=== PATIENT | female | born 1975 | race Caucasian/White ===

== ENCOUNTER 2022-10-07 12:23 | Emergency (ER) | payer BC ==
[2022-10-07] MEDS ORDERED: ASPIRIN 81 MG CHEWABLE TABLET ONE (12:54)
[2022-10-07] MEDS ORDERED: FAMOTIDINE 20 MG/2 ML VIAL IV ONE (12:55)
[2022-10-07] MEDS ORDERED: NA CHLORIDE 0.9% 1,000 ML ONE (12:55)
[2022-10-07 13:09] LABS: Absolute Lymphocytes (CBC) 1.9 K/uL (0.7-4.9); Hematocrit 41.1 % (36.0-45.0); Lymphocytes % 19.3 % (15.3-44.8); MCV 91.6 fL (80-100); MPV 7.9 fL (7.6-11.3); RBC Red Blood Cell Count 4.49 M/uL (3.86-4.86)
[2022-10-07 13:15] LABS: Protime INR 0.97
--- NOTE | 2022-10-07 13:17 | RAD REPORT ---
EXAM DESCRIPTION: Maurice Single View10/07/2022 12:47 pm CLINICAL HISTORY: CHEST PAIN COMPARISON: No comparisons TECHNIQUE: Portable AP view of the chest. FINDINGS: The lungs are clear. No pneumothorax or effusion. The cardiomediastinal contours are unre markable. IMPRESSION: No acute cardiopulmonary process.
[2022-10-07 13:31] LABS: ALT/SGPT 26 U/L (13-56); AST/SGOT 16 U/L (15-37); Albumin 3.6 g/dL (3.4-5.0); Alkaline Phosphatase 36 U/L (45-117); BUN Blood Urea Nitrogen 14 mg/dL (7-18); Bicarbonate 24 mEq/L (21-32); Bilirubin Direct < 0.1 mg/dL (0-0.2); Bilirubin Indirect, Calculated ND mg/dL (0.2-0.8); Bilirubin Total 0.3 mg/dL (0.2-1.0); Glomerular Filtration Rate 110 ml/min (=/>90); Glucose Level 107 mg/dL (74-106); Lipase 31 U/L (13-75); Magnesium 2.1 mg/dL (1.6-2.4); NT PRO-BNP 270 pg/mL (<125); Potassium 3.3 mEq/L (3.5-5.1); Protein, Total 7.8 g/dL (6.4-8.2); Sodium Level 138 mEq/L (136-145); Troponin High Sensitivity 4.1 pg/mL (<58.9)
[2022-10-07 13:50] LABS: Specific Gravity < 1.005 (1.005-1.030); Urine Bilirubin NEGATIVE (Negative); Urine Blood Negative (Negative); Urine Clarity Clear (Clear); Urine Color Colorless (Yellow); Urine Glucose NEGATIVE (Negative); Urine Protein NEGATIVE (Negative); Urine Urobilinogen Normal (Normal)
[2022-10-07 14:01] LABS: Barbiturates NEGATIVE (NEGATIVE); Benzodiazepines NEGATIVE (NEGATIVE); Cocaine NEGATIVE (NEGATIVE); METHAMPHETAM NEGATIVE (NEGATIVE); Methadone NEGATIVE (NEGATIVE); Opiates NEGATIVE (NEGATIVE); Phencyclidine NEGATIVE (NEGATIVE); THC Cannibis NEGATIVE (NEGATIVE)
--- NOTE | 2022-10-07 14:36 | RAD REPORT ---
EXAM DESCRIPTION: CT - Chest For Pe Angio - 10/07/2022 2:09 pm CLINICAL HISTORY: CHEST PAIN COMPARISON: Chest Single View dated 10/07/2022 TECHNIQUE: Thin axial CT images of the chest were obtained following administration of 95 mL Isovue 370 IV contrast. Multiplanar reconstructions, and maximum intensity projection reconstructions were g enerated and reviewed. Exam utilizes a protocol for optimal evaluation of pulmonary arterial tree. All CT scans are performed using dose optimization technique as appropriate and may include automated exposure control or mA/KV adjustment according to patient size. FINDINGS: Pulmonary arteries are normal. No emboli or other suspicious finding. No acute or signific ant aorta findings. No mass or infiltrate in the lung parenchyma. No pleural thickening or pleural effusion. No pneumotho rax. No abnormal mediastinal or hilar masses or lymphadenopathy seen. No chest wall mass or abnormal axill iary lymphadenopathy. Status post cholecystectomy. IMPRESSION: No evidence of acute central pulmonary emboli. No other acute findings in the chest.
[2022-10-07] MEDS ORDERED: POTASSIUM 25 MEQ EFFERV TAB ONE (14:45)
[2022-10-07] MEDS ORDERED: LEVALBUTEROL 1.25 MG/3 ML NEB ONE (14:45)
--- NOTE | 2022-10-07 15:46 | EDPHYS ---
Physician Documentation [facility] Name: Kaitlyn Carvalho Age: 47 yrs Sex: Female : 1975 Arrival Date: 10/07/2022 Time: 12:23 Bed 4 Private MD: RICARDO Physician Leandro Hill HPI: 10/07 13:51 This 47 yrs old WHITE Female presents to ER via Ambulatory with complaints of Chest daysi Pain. 13:51 The patient or guardian reports chest pain that is located primarily in the anterior daysi chest wall, bilaterally. Onset: last night. The pain does not radiate. Associated signs and symptoms: Pertinent positives: None. Pertinent negatives: None. The chest pain is described as sharp. Duration: The patient or guardian reports multiple episodes, with no pattern. Modifying factors: The symptoms are alleviated by nothing. the symptoms are aggravated by nothing. Severity of pain: At its worst the pain was mild in the emergency department the pain has resolved and did so earlier today. The patient has experienced similar episodes in the past, a few times. Historical: - Allergies: 12:41 No Known Allergies; hb - Home Meds: 12:41 Omeprazole Oral [Active]; Claritin Oral [Active]; hb - PMHx: 12:41 None; hb - PSHx: 12:41 Cholecystectomy; hb - Immunization history:: Adult Immunizations up to date. - Social history:: Smoking status: Patient denies any tobacco usage or history of. - Family history:: not pertinent. ROS: 13:51 Constitutional: Negative for fever, chills, and weight loss, Eyes: Negative for injury, daysi pain, redness, and discharge, ENT: Negative for injury, pain, and discharge, Neck: Negative for injury, pain, and swelling, Abdomen/GI: Negative for abdominal pain, nausea, vomiting, diarrhea, and constipation, Back: Negative for injury and pain, : Negative for injury, bleeding, discharge, and swelling, MS/Extremity: Negative for injury and deformity, Skin: Negative for injury, rash, and discoloration, Neuro: Negative for headache, weakness, numbness, tingling, and seizure, Psych: Negative for depression, anxiety, suicide ideation, homicidal ideation, and hallucinations, Allergy/Immunology: Negative for hives, rash, and allergies, Endocrine: Negative for neck swelling, polydipsia, polyuria, polyphagia, and marked weight changes, Hematologic/Lymphatic: Negative for swollen nodes, abnormal bleeding, and unusual bruising. 13:51 Cardiovascular: Positive for chest pain, of the chest, Negative for edema, orthopnea, palpitations, paroxysmal nocturnal dyspnea, acute changes. 13:51 : Negative for injury or acute deformity. Exam: 13:54 Constitutional: This is a well developed, well nourished patient who is awake, alert, daysi and in no acute distress. Head/Face: Normocephalic, atraumatic. Eyes: Pupils equal round and reactive to light, extra-ocular motions intact. Lids and lashes normal. Conjunctiva and sclera are non-icteric and not injected. Cornea within normal limits. Periorbital areas with no swelling, redness, or edema. ENT: Nares patent. No nasal discharge, no septal abnormalities noted. Tympanic membranes are normal and external auditory canals are clear. Oropharynx with no redness, swelling, or masses, exudates, or evidence of obstruction, uvula midline. Mucous membranes moist. Neck: Trachea midline, no thyromegaly or masses palpated, and no cervical lymphadenopathy. Supple, full range of motion without nuchal rigidity, or vertebral point tenderness. No Meningismus. Chest/axilla: Normal chest wall appearance and motion. Nontender with no deformity. No lesions are appreciated. Cardiovascular: Regular rate and rhythm with a normal S1 and S2. No gallops, murmurs, or rubs. Normal PMI, no JVD. No pulse deficits. Respiratory: Lungs have equal breath sounds bilaterally, clear to auscultation and percussion. No rales, rhonchi or wheezes noted. No increased work of breathing, no retractions or nasal flaring. Abdomen/GI: Soft, non-tender, with normal bowel sounds. No distension or tympany. No guarding or rebound. No evidence of tenderness throughout. Back: No spinal tenderness. No costovertebral tenderness. Full range of motion. Skin: Warm, dry with normal turgor. Normal color with no rashes, no lesions, and no evidence of cellulitis. MS/ Extremity: Pulses equal, no cyanosis. Neurovascular intact. Full, normal range of motion. Neuro: Awake and alert, GCS 15, oriented to person, place, time, and situation. Cranial nerves II-XII grossly intact. Motor strength 5/5 in all extremities. Sensory grossly intact. Cerebellar exam normal. Normal gait. Psych: Awake, alert, with orientation to person, place and time. Behavior, mood, and affect are within normal limits. 13:54 ECG was reviewed by the Attending Physician. NSR, NO ST CHANGES 13:54 Musculoskeletal/extremity: DVT Exam: No signs of deep vein thrombosis. no pain, no swelling, no tenderness, negative Homans' sign noted on exam, no appreciated bluish discoloration, no erythema, no increased warmth. Vital Signs: 12:40 BP 134 / 98; Pulse 66; Resp 16; Temp 98.4; Pulse Ox 100% on R/A; Weight 64.41 kg; hb Height 5 ft. 3 in. ; Pain 0/10; 13:27 BP 113 / 76; Pulse 56; Resp 18; Pulse Ox 99% on R/A; ph 14:11 BP 106 / 74; Pulse 55; Resp 18; Pulse Ox 98% on R/A; ph 14:43 BP 105 / 73; Pulse 64; Resp 16; Pulse Ox 100% on R/A; vg1 15:42 BP 96 / 62; Pulse 67; Resp 16; Pulse Ox 100% on R/A; vg1 12:40 Body Mass Index 25.15 (64.41 kg, 160.02 cm) hb 12:40 Pain Scale: Adult hb MDM: 12:34 Patient medically screened. daysi 13:55 Differential diagnosis: abnormal EKG, acute myocardial infarction, acute pericarditis, daysi anxiety, chest wall pain, Cholelithiasis costochondritis, esophagitis, gastritis, hiatal hernia, pancreatitis, peptic ulcer disease, pericarditis, pleurisy, pneumonia, pneumothorax, pulmonary embolus, stable angina, thoracic aortic disection, unstable angina. HEART Score: History: Slightly Suspicious (0), ECG: Normal (0), Age: < or = 45 years (0), Risk Factors: No Risk Factors Known (0), Troponin: < or = 1 x Normal Limit (0). The patient was given aspirin in the Emergency Department. TITA Risk Score: TOTAL SCORE = 0. Data reviewed: vital signs, nurses notes, lab test result(s), EKG, radiologic studies, CT scan, plain films. Consideration of Admission/Observation Escalation of care including admission/observation considered. I considered the following discharge prescriptions or medication management in the emergency department Medications were administered in the Emergency Department. See MAR. Independent interpretation of the following test(s) in the Emergency Department EKG: See my EKG interpretation above. Test considered but Not performed: Ultrasound NO ECHO, NO ABD USG. Care significantly affected by the following chronic conditions: GERD. 10/07 12:36 Order name: Basic Metabolic Panel; Complete Time: 13:40 [facility] 10/07 12:36 Order name: CBC with Diff; Complete Time: 13:40 10/07 12:36 Order name: LFT's; Complete Time: 13:40 10/07 12:36 Order name: Magnesium; Complete Time: 13:40 10/07 12:36 Order name: NT PRO-BNP; Complete Time: 13:40 10/07 12:36 Order name: PT-INR; Complete Time: 13:40 10/07 12:36 Order name: Troponin HS; Complete Time: 13:40 10/07 12:36 Order name: Urinalysis w/ reflexes; Complete Time: 14:08 10/07 12:36 Order name: UDS; Complete Time: 14:08 10/07 12:36 Order name: Lipase; Complete Time: 13:40 10/07 14:39 Order name: Troponin High Sensitivity: 3pm; Complete Time: 15:44 10/07 12:36 Order name: XRAY Chest (1 view); Complete Time: 13:40 10/07 13:41 Order name: CT Chest For PE Angio; Complete Time: 14:37 10/07 12:36 Order name: EKG; Complete Time: 12:36 [facility] 10/07 12:36 Order name: Cardiac monitoring; Complete Time: 12:43 daysi 10/07 12:36 Order name: EKG - Nurse/Tech; Complete Time: 12:43 10/07 12:36 Order name: IV Saline Lock; Complete Time: 12:43 10/07 12:36 Order name: Labs collected and sent; Complete Time: 12:55 10/07 12:36 Order name: O2 Per Protocol; Complete Time: 12:43 10/07 12:36 Order name: O2 Sat Monitoring; Complete Time: 12:43 [facility] EC:54 Rate is 69 beats/min. Rhythm is regular. QRS [place] is Normal. CT interval is normal. QRS daysi interval is normal. QT interval is normal. No Q waves. T waves are Normal. No ST changes noted. Clinical impression: NSR w/ Non-specific ST/T Changes and No evidence of ischemia. Interpreted by me. Reviewed by me. Administered Medications: 12:54 Drug: Aspirin PO Chewable Tablet 324 mg Route: PO; ph 14:11 Follow up: Response: No adverse reaction ph 12:54 Drug: NS 0.9% IV 1000 ml Route: IV; Rate: 125 ml/hr; Site: right antecubital; ph 16:07 Follow up: IV Status: Completed infusion; IV Intake: 1000ml vg1 12:54 Drug: Famotidine IVP 20 mg Route: IVP; Site: right antecubital; ph 14:13 Follow up: Response: No adverse reaction ph 14:40 Drug: Potassium PO Effervescent Tablet 25 mEq Route: PO; vg1 16:06 Follow up: Response: No adverse reaction vg1 14:42 Drug: Levalbuterol Inhalation 2.5 mg Route: Inhalation; vg1 16:06 Follow up: Response: No adverse reaction vg1 Disposition Summary: 10/07/22 15:46 Discharge Ordered Location: Home daysi Problem: new daysi Symptoms: have improved daysi Condition: Stable daysi Diagnosis - Acute bronchospasm daysi - Chest pain, unspecified daysi - Gastro-esophageal reflux disease with esophagitis daysi - Hypokalemia daysi Followup: daysi - With: Private Physician - When: 2 - 3 days - Reason: Recheck today's complaints, Continuance of care, Re-evaluation by your physician Followup: daysi - With: - When: 2 - 3 days - Reason: Recheck today's complaints, Re-evaluation by your physician Discharge Instructions: - Discharge Summary Sheet daysi - Bronchospasm, Adult daysi - Nonspecific Chest Pain, Adult daysi - Food Choices for Gastroesophageal Reflux Disease, Adult daysi - Potassium Content of Foods daysi - Esophagitis daysi - Gastroesophageal Reflux Disease, Adult daysi - Nonspecific Chest Pain, Adult, [id number] daysi - Gastroesophageal Reflux Disease, Adult, [id number] daysi - Aspirin and Your Heart daysi - Hypokalemia daysi Forms: - Medication Reconciliation Form daysi - Thank You Letter daysi - Antibiotic Education daysi - Prescription Opioid Use daysi - Patient Portal Instructions daysi Prescriptions: - albuterol sulfate 90 mcg/actuation Inhalation HFA Aerosol Inhaler - inhale 2 inhalation by INHALATION route every 4 to 6 hours as needed for daysi shortness of breath or wheezing; 1 unit; Refills: 0, Product Selection Permitted - Protonix 40 mg Oral Tablet - take 1 tablet by ORAL route once daily; 30 tablet; Refills: 0, Product daysi Selection Permitted Signatures: Dispatcher [employer] Leandro Lee MD MD cha Hall, Patricia, RN RN ph Baxter, Heather, RN RN Charmaine Tavarez RN RN vg1
--- NOTE | 2022-10-07 15:46 | ER ---
Nurse's Notes [facility] Name: Kaitlyn Carvalho Age: 47 yrs Sex: Female : 1975 Arrival Date: 10/07/2022 Time: 12:23 Bed 4 Private MD: Diagnosis: Acute bronchospasm;Chest pain, unspecified;Gastro-esophageal reflux disease with esophagitis;Hypokalemia Presentation: 10/07 12:40 Chief complaint: Intermittent sharp left sided chest pain that started last night. hb Coronavirus screen: At this time, the client does not indicate any symptoms associated with coronavirus-19. Ebola Screen: No symptoms or risks identified at this time. Initial Sepsis Screen: Does the patient meet any 2 criteria? No. Patient's initial sepsis screen is negative. Does the patient have a suspected source of infection? No. Patient's initial sepsis screen is negative. Risk Assessment: Do you want to hurt yourself or someone else? Patient reports no desire to harm self or others. Onset of symptoms was October 06, 2022. 12:40 Method Of Arrival: Ambulatory hb 12:40 Acuity: RIAZ 3 hb Historical: - Allergies: 12:41 No Known Allergies; hb - Home Meds: 12:41 Omeprazole Oral [Active]; Claritin Oral [Active]; hb - PMHx: 12:41 None; hb - PSHx: 12:41 Cholecystectomy; hb - Immunization history:: Adult Immunizations up to date. - Social history:: Smoking status: Patient denies any tobacco usage or history of. - Family history:: not pertinent. Screenin:26 [facility] ED Fall Risk Assessment (Adult) History of falling in the last 3 months, ph including since admission No falls in past 3 months (0 pts) Confusion or Disorientation No (0 pts) Intoxicated or Sedated No (0 pts) Impaired Gait No (0 pts) Mobility Assist Device Used No (0 pt) Altered Elimination No (0 pt) Score/Fall Risk Level 0 - 2 = Low Risk Oriented to surroundings, Maintained a safe environment, Hourly rounding (assess needs \T\ fall precautionary measures) done. Abuse screen: Denies threats or abuse. Denies injuries from another. Nutritional screening: No deficits noted. Tuberculosis screening: No symptoms or risk factors identified. Assessment: 13:00 General: Appears in no apparent distress. comfortable, well groomed, Behavior is calm, ph cooperative, appropriate for age. Pain: Complains of pain in anterior aspect of left upper chest Pain does not radiate. Pain began yesterday Is intermittent. Neuro: Level of Consciousness is awake, alert, obeys commands, Oriented to person, place, time, situation. Cardiovascular: Reports chest pain, Denies lightheadedness, nausea, vomiting. Respiratory: Airway is patent Respiratory effort is even, unlabored. Derm: Skin is pink, warm \T\ dry. 14:11 Reassessment: Patient appears in no apparent distress at this time. Patient and/or ph family updated on plan of care and expected duration. Pain level reassessed. Patient is alert, oriented x 3, equal unlabored respirations, skin warm/dry/pink. 14:43 General: Appears in no apparent distress. comfortable, Behavior is calm, cooperative. vg1 Pain: Denies pain. Cardiovascular: Patient's skin is warm and dry. 15:42 Reassessment: Patient appears in no apparent distress at this time. No changes from vg1 previously documented assessment. Patient and/or family updated on plan of care and expected duration. Pain level reassessed. Patient is alert, oriented x 3, equal unlabored respirations, skin warm/dry/pink. 16:06 Reassessment: Patient appears in no apparent distress at this time. Patient and/or vg1 family updated on plan of care and expected duration. Pain level reassessed. Patient is alert, oriented x 3, equal unlabored respirations, skin warm/dry/pink. Patient states feeling better. Vital Signs: 12:40 BP 134 / 98; Pulse 66; Resp 16; Temp 98.4; Pulse Ox 100% on R/A; Weight 64.41 kg; hb Height 5 ft. 3 in. ; Pain 0/10; 13:27 BP 113 / 76; Pulse 56; Resp 18; Pulse Ox 99% on R/A; ph 14:11 BP 106 / 74; Pulse 55; Resp 18; Pulse Ox 98% on R/A; ph 14:43 BP 105 / 73; Pulse 64; Resp 16; Pulse Ox 100% on R/A; vg1 15:42 BP 96 / 62; Pulse 67; Resp 16; Pulse Ox 100% on R/A; vg1 12:40 Body Mass Index 25.15 (64.41 kg, 160.02 cm) hb 12:40 Pain Scale: Adult hb Vitals: 13:27 Cardiac Rhythm Assessment Sinus rhythm. ph ED Course: 12:28 Patient arrived in ED. ts1 12:30 Siomara Lowe, RN is Primary Nurse. ph 12:34 Leandro Hill MD is Attending Physician. daysi 12:36 EKG completed in triage. Results shown to MD. hb 12:41 Triage completed. hb 12:42 Arm band placed on right wrist. hb 12:45 Initial lab(s) drawn, by me, sent to lab. EKG done, by ED staff, reviewed by Leandro Hill MD. Inserted saline lock: 20 gauge in right antecubital area, using aseptic technique. Blood collected. 12:49 XRAY Chest (1 view) In Process Unspecified. EDMS 13:27 Patient has correct armband on for positive identification. Placed in gown. Bed in low ph position. Call light in reach. Side rails up X2. Client placed on continuous cardiac and pulse oximetry monitoring. NIBP monitoring applied. 13:27 No provider procedures requiring assistance completed. Patient maintains SpO2 ph saturation greater than 95% on room air. 13:44 Urinalysis w/ reflexes Sent. ph 13:44 UDS Sent. ph 14:11 CT Chest For PE Angio In Process Unspecified. EDMS 14:40 Primary Nurse role handed off by Siomara Lowe, MARY jl7 14:42 Charmaine Choi, RN is Primary Nurse. vg1 15:03 Troponin High Sensitivity: 3pm Sent. vg1 15:13 Troponin High Sensitivity: 3pm Sent. mm9 15:46 Ochoa Valladares MD is Referral Physician. daysi 16:06 IV discontinued, intact, bleeding controlled, No redness/swelling at site. Pressure vg1 dressing applied. Administered Medications: 12:54 Drug: Aspirin PO Chewable Tablet 324 mg Route: PO; ph 14:11 Follow up: Response: No adverse reaction ph 12:54 Drug: NS 0.9% IV 1000 ml Route: IV; Rate: 125 ml/hr; Site: right antecubital; ph 16:07 Follow up: IV Status: Completed infusion; IV Intake: 1000ml vg1 12:54 Drug: Famotidine IVP 20 mg Route: IVP; Site: right antecubital; ph 14:13 Follow up: Response: No adverse reaction ph 14:40 Drug: Potassium PO Effervescent Tablet 25 mEq Route: PO; vg1 16:06 Follow up: Response: No adverse reaction vg1 14:42 Drug: Levalbuterol Inhalation 2.5 mg Route: Inhalation; vg1 16:06 Follow up: Response: No adverse reaction vg1 Medication: 13:27 VIS not applicable for this client. ph Intake: 16:07 IV: 1000ml; Total: 1000ml. vg1 Outcome: 15:46 Discharge ordered by MD. tavarez 16:06 Discharged to home ambulatory. vg1 16:06 Condition: good 16:06 Discharge instructions given to patient, Instructed on discharge instructions, follow up and referral plans. medication usage, Demonstrated understanding of instructions, follow-up care, medications, Prescriptions given X 2. 16:07 Patient left the ED. vg1 Signatures: Dispatcher [employer] EDMS Leandro Hill MD MD cha Hall, Patricia, RN RN Olga Judge RN RN Josselin Yip RN RN jl7 Charmaine Choi RN RN vg1 Ani Avelar mm9 Macy Vasquez PAS PAS ts1 Corrections: (The following items were deleted from the chart) 12:42 12:10 EKG completed in triage. Results shown to MD. hb hb
[2022-10-07 16:11] VITALS: TEMP 98.4
[2022-10-07 16:17] VITALS: O2SAT 100
[2022-10-07 16:18] VITALS: BP 96/62
--- NOTE | 2022-10-08 11:44 | EKG ---
Test Date: 2022-10-07 Test Time: 12:37:35 [employer]er: HB MEASUREMENT RESULTS: Intervals: Rate: 69 NC: 166 QRSD: 80 QT: 408 QTc: 437 [place]: P: 72 NC: 166 QRS: 79 T: 56 INTERPRETIVE STATEMENTS: Normal sinus rhythm Low voltage QRS Borderline ECG No previous ECG available for comparison Electronically Signed On 10-08-22 11:43:47 CDT by Ochoa Valladares
== END 2022-10-07 16:07 | disposition home or self-care (01) ==
LOC: ER 12:23
DX: J98.01 Acute bronchospasm (principal); K21.00 Gastro-esophageal reflux disease with esophagitis, without bleeding; E87.6 Hypokalemia
CPT/HCPCS: 96361; 93005; 85025; 80048; 36415; 83735; 85610; 80076; 81003; 84484 ×2; 83690; 83880; 80307; 71275; 71045; 96374; 99285; Q9967; J7614; J7030